=== PATIENT | male | born 1940 | race Caucasian/White ===

== ENCOUNTER 2023-04-11 12:57 | Inpatient (IN) | payer OTHER, MEDICARE ==
[~2023-04-11] VITALS: Ht 175.3 cm; Wt 81.4 kg
[2023-04-11] MEDS ORDERED: NS 100 ML (IVPB) BAG IV ONE (13:15)
[2023-04-11] MEDS ORDERED: HOLD METFORMIN - RECEIVED CONTRAST 20 ML VIAL IV SCH (13:15)
[2023-04-11] MEDS ORDERED: IOHEXOL 350 MG/ML 100 ML (OMNIPAQUE 350) VIAL IV ONE (13:15)
[2023-04-11 13:17] LABS: HEMATOCRIT 35 % (40-54); HEMOGLOBIN 10.8 g/dL (13.3-17.7); MEAN CORPUSCULAR HEMOGLOBIN 26 pg (25-34); MEAN CORPUSCULAR HGB CONC 31 g/dL (32-36); MEAN CORPUSCULAR VOLUME 83 fL (80-99); MEAN PLATELET VOLUME 11.3 fL (9.0-12.2); PLATELET COUNT 170 10^3/uL (130-400); WHITE BLOOD COUNT 7.6 10^3/uL (4.3-11.0)
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
[2023-04-11 13:25] LABS: POTASSIUM 5.2 MMOL/L (3.6-5.0)
[2023-04-11 13:26] LABS: CALCIUM 9.4 MG/DL (8.5-10.1)
[2023-04-11 13:28] LABS: TOTAL PROTEIN 7.3 GM/DL (6.4-8.2)
[2023-04-11 13:29] LABS: INR 1.3 (0.8-1.4); PROTHROMBIN TIME PATIENT 16.7 SEC (12.2-14.7)
[2023-04-11 13:30] LABS: BILIRUBIN,TOTAL 0.4 MG/DL (0.1-1.0)
[2023-04-11 13:31] LABS: CREATININE SERUM 1.39 MG/DL (0.60-1.30)
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
[2023-04-11 13:33] LABS: BILIRUBIN,DIRECT 0.2 MG/DL (0.0-0.3); BILIRUBIN,INDIRECT 0.2 MG/DL
[2023-04-11 13:34] LABS: MAGNESIUM 2.4 MG/DL (1.6-2.4)
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
[2023-04-11] MEDS ORDERED: fentaNYL INJECTION 100 MCG/2 ML VIAL IVP ONE (14:15)
[2023-04-11 14:25] LABS: CLARITY,URINE SLIGHTLY CLOUDY; COLOR,URINE YELLOW; GLUCOSE, URINE (UA) NEGATIVE (NEGATIVE); PH,URINE 7.5 (5-9); PROTEIN,URINE 2+ (NEGATIVE)
[2023-04-11 14:26] LABS: BILIRUBIN,URINE NEGATIVE (NEGATIVE); KETONES,URINE NEGATIVE (NEGATIVE); LEUKOCYTE ESTERASE ,URINE NEGATIVE (NEGATIVE); NITRITE,URINE NEGATIVE (NEGATIVE)
[2023-04-11 14:35] LABS: AMORPHOUS SEDIMENT,UR RARE AMOR PHOSPHATE /LPF; BACTERIA,URINE TRACE /HPF; RBC,URINE >100 /HPF; SQUAMOUS EPITHELIAL CELL,UR RARE /HPF
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
[2023-04-11 16:56] VITALS: BP 123/64
[2023-04-11] MEDS ORDERED: CATHETER FLUSH 10 ML SYR IVP PRN (17:15)
[2023-04-11] MEDS ORDERED: ACETAMINOPHEN 500 MG TABLET PO PRN (17:15)
[2023-04-11] MEDS ORDERED: ONDANSETRON 4 MG/2 ML (SDV) Z0FRAN IV PRN (17:15)
[2023-04-11] MEDS: fentaNYL INJECTION 100 MCG/2 ML VIAL IV PRN (17:24)
[2023-04-11] MEDS: oxyCODONE IMMEDIATE RELEASE 5 MG TABLET PO PRN (17:24)
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
[2023-04-11] MEDS: LIDOCAINE PATCH REMOVAL TP SCH (20:29)
[2023-04-11] MEDS: LIDOCAINE 4% PATCH TOP SCH (20:54)
[2023-04-11] MEDS: METHOCARBAMOL 500 MG TABLET PO SCH (20:55)
[2023-04-11] MEDS: CATHETER FLUSH 10 ML SYR IVP SCH (22:39)
[2023-04-12] MEDS: fentaNYL INJECTION 100 MCG/2 ML VIAL IV PRN ×3 (03:44→21:48)
[2023-04-12 04:27] LABS: HEMATOCRIT 32 % (40-54); HEMOGLOBIN 9.7 g/dL (13.3-17.7); MEAN CORPUSCULAR HEMOGLOBIN 25 pg (25-34); MEAN CORPUSCULAR HGB CONC 31 g/dL (32-36); MEAN CORPUSCULAR VOLUME 82 fL (80-99); PLATELET COUNT 148 10^3/uL (130-400); WHITE BLOOD COUNT 9.2 10^3/uL (4.3-11.0)
[2023-04-12 04:30] LABS: BASOPHILS % (AUTO) 0 % (0-10); EOSINOPHILS # (AUTO) 0.3 10^3/uL (0.0-0.3); EOSINOPHILS % (AUTO) 3 % (0-10); LYMPHOCYTES # (AUTO) 1.6 10^3/uL (1.0-4.0); LYMPHOCYTES % (AUTO) 17 % (12-44); MEAN PLATELET VOLUME 11.9 fL (9.0-12.2); MONOCYTES # (AUTO) 1.1 10^3/uL (0.0-1.0); MONOCYTES % (AUTO) 12 % (0-12); NEUTROPHILS # (AUTO) 6.2 10^3/uL (1.8-7.8); NEUTROPHILS % (AUTO) 67 % (42-75)
[2023-04-12 04:42] LABS: ALBUMIN 3.7 GM/DL (3.2-4.5); POTASSIUM 4.7 MMOL/L (3.6-5.0)
[2023-04-12 04:43] LABS: CALCIUM 8.7 MG/DL (8.5-10.1)
[2023-04-12 04:45] LABS: TOTAL PROTEIN 6.7 GM/DL (6.4-8.2)
[2023-04-12 04:47] LABS: BILIRUBIN,TOTAL 0.9 MG/DL (0.1-1.0)
[2023-04-12 04:48] LABS: CREATININE SERUM 1.6 MG/DL (0.60-1.30); PHOSPHORUS 3.5 MG/DL (2.3-4.7)
[2023-04-12 04:51] LABS: MAGNESIUM 2.2 MG/DL (1.6-2.4)
[2023-04-12] MEDS: CATHETER FLUSH 10 ML SYR IVP SCH ×2 (06:14→22:12)
[2023-04-12] MEDS: oxyCODONE IMMEDIATE RELEASE 5 MG TABLET PO PRN ×3 (06:22→19:40)
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
[2023-04-12] MEDS: METHOCARBAMOL 500 MG TABLET PO SCH ×3 (09:22→20:21)
[2023-04-12] MEDS: LIDOCAINE 4% PATCH TOP SCH ×2 (09:22→20:21)
[2023-04-12] MEDS: LIDOCAINE PATCH REMOVAL TP SCH ×2 (09:22→20:21)
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
[2023-04-12] MEDS ORDERED: CARV25TA PO (15:19)
[2023-04-12] MEDS ORDERED: FERR-84 PO (15:19)
[2023-04-12] MEDS ORDERED: LEVO100T7 PO (15:19)
[2023-04-12] MEDS ORDERED: APIX5TAB PO (15:19)
[2023-04-12] MEDS ORDERED: PANT40TA52 PO (15:19)
[2023-04-12] MEDS ORDERED: ASPI-1238 PO (15:19)
[2023-04-12] MEDS ORDERED: FURO40TA4 PO (15:19)
[2023-04-12] MEDS: DOCUSATE SODIUM 100 MG CAPSULE PO SCH (20:21)
[2023-04-12] MEDS: SENNA W/DOCUSATE (SENOKOT S) TABLET PO SCH (20:21)
[2023-04-12] MEDS: LACTATED RINGERS 1,000 ML IV SCH (22:55)
[2023-04-13] MEDS: oxyCODONE IMMEDIATE RELEASE 5 MG TABLET PO PRN ×5 (00:08→22:53)
[2023-04-13] MEDS: fentaNYL INJECTION 100 MCG/2 ML VIAL IV PRN ×3 (04:27→10:06)
[2023-04-13 04:35] LABS: BASOPHILS % (AUTO) 0 % (0-10); EOSINOPHILS # (AUTO) 0.3 10^3/uL (0.0-0.3); EOSINOPHILS % (AUTO) 3 % (0-10); MONOCYTES # (AUTO) 1.1 10^3/uL (0.0-1.0)
[2023-04-13 04:37] LABS: HEMATOCRIT 29 % (40-54); HEMOGLOBIN 8.9 g/dL (13.3-17.7); LYMPHOCYTES # (AUTO) 1.7 10^3/uL (1.0-4.0); LYMPHOCYTES % (AUTO) 19 % (12-44); MEAN CORPUSCULAR HEMOGLOBIN 26 pg (25-34); MEAN CORPUSCULAR HGB CONC 31 g/dL (32-36); MEAN CORPUSCULAR VOLUME 83 fL (80-99); MEAN PLATELET VOLUME 11.5 fL (9.0-12.2); MONOCYTES % (AUTO) 12 % (0-12); NEUTROPHILS # (AUTO) 5.9 10^3/uL (1.8-7.8); NEUTROPHILS % (AUTO) 65 % (42-75); PLATELET COUNT 122 10^3/uL (130-400); WHITE BLOOD COUNT 9.1 10^3/uL (4.3-11.0)
[2023-04-13 04:46] LABS: ALBUMIN 3.5 GM/DL (3.2-4.5); POTASSIUM 4.5 MMOL/L (3.6-5.0)
[2023-04-13 04:47] LABS: CALCIUM 8.6 MG/DL (8.5-10.1)
[2023-04-13 04:49] LABS: TOTAL PROTEIN 6.3 GM/DL (6.4-8.2)
[2023-04-13 04:50] LABS: BILIRUBIN,TOTAL 0.9 MG/DL (0.1-1.0); SMEAR SCAN COMMENT YES
[2023-04-13 04:52] LABS: PHOSPHORUS 3.4 MG/DL (2.3-4.7)
[2023-04-13 05:23] LABS: CREATININE SERUM 1.39 MG/DL (0.60-1.30)
[2023-04-13 05:25] LABS: MAGNESIUM 2.2 MG/DL (1.6-2.4)
[2023-04-13] MEDS: CATHETER FLUSH 10 ML SYR IVP SCH ×3 (06:23→21:04)
[2023-04-13] MEDS: DOCUSATE SODIUM 100 MG CAPSULE PO SCH ×2 (08:31→20:13)
[2023-04-13] MEDS: METHOCARBAMOL 500 MG TABLET PO SCH ×3 (08:31→20:13)
[2023-04-13] MEDS: LACTATED RINGERS 1,000 ML IV SCH (08:31)
[2023-04-13] MEDS: SENNA W/DOCUSATE (SENOKOT S) TABLET PO SCH ×2 (08:32→20:13)
[2023-04-13] MEDS: LIDOCAINE PATCH REMOVAL TP SCH ×2 (08:32→21:04)
[2023-04-13] MEDS: LIDOCAINE 4% PATCH TOP SCH ×2 (08:32→20:13)
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
[2023-04-13] MEDS ORDERED: NON-FORMULARY MEDICATION 1 EA EA (Carvedilol 25 MG) PO SCH (09:45)
[2023-04-13] MEDS: PANTOPRAZOLE 40 MG (PROTONIX) TAB PO SCH (10:06)
[2023-04-13] MEDS: carvediloL 12.5 MG TABLET PO SCH ×2 (10:07→20:13)
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
--- NOTE | 2023-04-13 11:11 | Physical Therapy Daily Note ---
PT Daily Note-Current Subjective Pt. in bed, very [place] but agrees to PT. He c/o R sciatic pain and numbness, unable to give objective pain rating when asked. Pain Section J - Health Conditions 1. Rarely or not at all 2. Occasionally 3. Frequently 4. Almost constantly 8. Unable to answer Pain Effect on Sleep: 3 Pain Interference with Therapy: 3 Pain Interference w/Day-to-Day: 3 Mental Status Patient Orientation: Person, Place, Time, Situation Attachments: Oxygen Transfers SCALE: Activities may be completed with or without assistive devices. 9-[id number]-[id number] completes the activity by him/herself with no assistance from a helper. 5-Set-up or Clean-up Assistance-helper sets up or cleans up; patient completes activity. [place] assists only prior to or following the activity. 4-Supervision or Touching Assistance-helper provides verbal cues and/or touching/steadying and/or contact guard assistance as patient completes activit y. Assistance may be provided throughout the activity or intermittently. 3-Partial/Moderate Assistance-helper does LESS THAN HALF the effort. [place] lifts, holds or supports trunk or limbs, but provides less than half the effort. 2-Substantial/Maximal Assistance-helper does MORE THAN HALF the effort. [place] lifts or holds trunk or limbs and provides more than half the effort. 8-Hlzmtrbur-usvrip does ALL the effort. Patient does none of the effort to complete the activity. Or, the assistance of 2 or more helpers is required for the patient to complete the activity. If activity was not attempted, code reason: 7-Patient Refused. 9-Not Applicable-not attempted and the patient did not perform the activity before the current illness, exacerbation or injury. 10-Not Attempted due to Environmental Limitations-(lack of equipment, weather restraints, etc.). 88-Not Attempted due to Medical Conditions or Safety Concerns. Lying to Sitting/Side of Bed(Q: 4 Sit to Stand (QC): 4 Gait Training Does the Patient Walk?: Yes Distance: 200 ft Walk 150 ft (QC): 4 Gait Persons Needed: 1 Gait Assistive Device: FWW Assessment Current Status: Good Progress Pt. is steady with ambulation but requires use of FWW due to c/o numbness and pain in the R LE and needed to lean slightly on walker. Pt. up in bedside chair post session with O2 in situ, call light and all needs met. Pt. did ambulate on RA with O2 sats 100% upon return to room. PT Snf Goals Snf Goals PT Snf Goals Time Frame: Apr 27, 2023 Roll Left & Right (QC): 6 Sit to Lying (QC): 6 Lying-Sitting on Side/Bed(QC): 6 Sit to Stand (QC): 6 Chair/Ooi-am-Hyogw Xfer(QC): 6 Toilet Transfer (QC): 6 Car Transfer (QC): 6 Walk 10 feet (QC): 6 Walk 50ft with 2 Turns (QC): 6 Walk 150 ft (QC): 6 Walking 10ft on Uneven Surface: 6 1 Step (curb) (QC): 6 4 Steps (QC): 6 PT Plan Treatment/Plan Treatment Plan: Continue Plan of Care Treatment Plan: Bed Mobility, Education, Functional Activity Dior, Functional Strength, Gait, Safety, Therapeutic Exercise, Transfers Treatment Duration: Apr 27, 2023 Frequency: 6 times per week Estimated Hrs Per Day: .25 hour per day Patient and/or Family Agrees t: Yes Time Time In: 1050 Time Out: 1105 DATE: Apr 13, 2023 Total Billed Treatment Time: 15 Total Billed Treatment 1, GT 15' JOSR COOPER PT Apr 13, 2023 11:11
[2023-04-13] MEDS: FERROUS SULFATE 325 MG (IRON) TABLET PO SCH (12:53)
[2023-04-13] MEDS ORDERED: APIXABAN 5 MG TABLET PO NR (13:00)
[2023-04-13 16:00] VITALS: BP 111/68
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
[2023-04-13 19:47] VITALS: BP 99/60
[2023-04-13] MEDS: APIXABAN 5 MG TABLET PO SCH (20:13)
[2023-04-14] VITALS (8 sets, daily range): BP systolic 102–109; BP diastolic 55–72
[2023-04-14] MEDS: fentaNYL INJECTION 100 MCG/2 ML VIAL IV PRN ×2 (04:23→08:42)
[2023-04-14 06:03] LABS: HEMOGLOBIN 8.2 g/dL (13.3-17.7); LYMPHOCYTES % (AUTO) 20 % (12-44); MEAN CORPUSCULAR HEMOGLOBIN 25 pg (25-34)
[2023-04-14 06:05] LABS: BASOPHILS % (AUTO) 0 % (0-10); EOSINOPHILS # (AUTO) 0.2 10^3/uL (0.0-0.3); EOSINOPHILS % (AUTO) 3 % (0-10); HEMATOCRIT 27 % (40-54); LYMPHOCYTES # (AUTO) 1.4 10^3/uL (1.0-4.0); MEAN CORPUSCULAR HGB CONC 31 g/dL (32-36); MEAN CORPUSCULAR VOLUME 83 fL (80-99); MEAN PLATELET VOLUME 12.7 fL (9.0-12.2); MONOCYTES # (AUTO) 0.9 10^3/uL (0.0-1.0); MONOCYTES % (AUTO) 13 % (0-12); NEUTROPHILS # (AUTO) 4.6 10^3/uL (1.8-7.8); NEUTROPHILS % (AUTO) 64 % (42-75); PLATELET COUNT 105 10^3/uL (130-400); WHITE BLOOD COUNT 7.3 10^3/uL (4.3-11.0)
[2023-04-14] MEDS: CATHETER FLUSH 10 ML SYR IVP SCH ×3 (06:08→20:18)
[2023-04-14 06:14] LABS: ALBUMIN 3.3 GM/DL (3.2-4.5); POTASSIUM 4.7 MMOL/L (3.6-5.0)
[2023-04-14 06:16] LABS: CALCIUM 8.3 MG/DL (8.5-10.1)
[2023-04-14 06:17] LABS: TOTAL PROTEIN 6.4 GM/DL (6.4-8.2)
[2023-04-14 06:19] LABS: BILIRUBIN,TOTAL 0.9 MG/DL (0.1-1.0)
[2023-04-14 06:21] LABS: CREATININE SERUM 1.29 MG/DL (0.60-1.30)
[2023-04-14 06:23] LABS: MAGNESIUM 2.2 MG/DL (1.6-2.4)
[2023-04-14] MEDS: LEVOTHYROXINE 100 MCG TABLET PO SCH (06:32)
[2023-04-14] MEDS: oxyCODONE IMMEDIATE RELEASE 5 MG TABLET PO PRN (06:32)
[2023-04-14] MEDS: METHOCARBAMOL 500 MG TABLET PO SCH ×3 (08:42→21:01)
[2023-04-14] MEDS: SENNA W/DOCUSATE (SENOKOT S) TABLET PO SCH ×2 (08:43→21:01)
[2023-04-14] MEDS: APIXABAN 5 MG TABLET PO SCH ×2 (08:43→20:17)
[2023-04-14] MEDS: carvediloL 12.5 MG TABLET PO SCH ×2 (08:43→20:17)
[2023-04-14] MEDS: LIDOCAINE 4% PATCH TOP SCH ×2 (08:43→20:17)
[2023-04-14] MEDS: PANTOPRAZOLE 40 MG (PROTONIX) TAB PO SCH (08:43)
[2023-04-14] MEDS: DOCUSATE SODIUM 100 MG CAPSULE PO SCH ×2 (08:43→21:01)
[2023-04-14] MEDS: LIDOCAINE PATCH REMOVAL TP SCH ×2 (08:43→20:18)
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
[2023-04-14] MEDS: ACETAMINOPHEN 500 MG TABLET PO SCH ×2 (11:51→17:27)
[2023-04-15] VITALS (7 sets, daily range): BP systolic 103–125; BP diastolic 55–80
[2023-04-15] MEDS: ACETAMINOPHEN 500 MG TABLET PO SCH ×3 (02:53→16:23)
[2023-04-15 05:26] LABS: BASOPHILS % (AUTO) 0 % (0-10); EOSINOPHILS # (AUTO) 0.2 10^3/uL (0.0-0.3); EOSINOPHILS % (AUTO) 3 % (0-10); HEMATOCRIT 26 % (40-54); HEMOGLOBIN 8.1 g/dL (13.3-17.7); LYMPHOCYTES # (AUTO) 1.2 10^3/uL (1.0-4.0); LYMPHOCYTES % (AUTO) 16 % (12-44); MEAN CORPUSCULAR HEMOGLOBIN 26 pg (25-34); MEAN CORPUSCULAR HGB CONC 31 g/dL (32-36); MEAN CORPUSCULAR VOLUME 82 fL (80-99); MEAN PLATELET VOLUME 12.1 fL (9.0-12.2); MONOCYTES # (AUTO) 0.9 10^3/uL (0.0-1.0); MONOCYTES % (AUTO) 12 % (0-12); NEUTROPHILS # (AUTO) 4.9 10^3/uL (1.8-7.8); NEUTROPHILS % (AUTO) 68 % (42-75); PLATELET COUNT 131 10^3/uL (130-400); WHITE BLOOD COUNT 7.3 10^3/uL (4.3-11.0)
[2023-04-15 05:41] LABS: ALBUMIN 3.5 GM/DL (3.2-4.5); POTASSIUM 4.8 MMOL/L (3.6-5.0)
[2023-04-15 05:42] LABS: CALCIUM 8.6 MG/DL (8.5-10.1)
[2023-04-15 05:43] LABS: TOTAL PROTEIN 6.7 GM/DL (6.4-8.2)
[2023-04-15 05:47] LABS: CREATININE SERUM 1.17 MG/DL (0.60-1.30); PHOSPHORUS 2.8 MG/DL (2.3-4.7)
[2023-04-15 05:50] LABS: MAGNESIUM 2.3 MG/DL (1.6-2.4)
[2023-04-15] MEDS: CATHETER FLUSH 10 ML SYR IVP SCH ×3 (06:02→19:46)
[2023-04-15] MEDS: LEVOTHYROXINE 100 MCG TABLET PO SCH (06:29)
[2023-04-15] MEDS: APIXABAN 5 MG TABLET PO SCH ×2 (08:15→19:41)
[2023-04-15] MEDS: PANTOPRAZOLE 40 MG (PROTONIX) TAB PO SCH (08:16)
[2023-04-15] MEDS: DOCUSATE SODIUM 100 MG CAPSULE PO SCH ×2 (08:16→19:42)
[2023-04-15] MEDS: SENNA W/DOCUSATE (SENOKOT S) TABLET PO SCH ×2 (08:16→19:42)
[2023-04-15] MEDS: carvediloL 12.5 MG TABLET PO SCH ×2 (08:16→19:42)
[2023-04-15] MEDS: LIDOCAINE 4% PATCH TOP SCH ×2 (08:17→19:44)
[2023-04-15] MEDS: METHOCARBAMOL 500 MG TABLET PO SCH ×3 (08:17→19:46)
[2023-04-15] MEDS: LIDOCAINE PATCH REMOVAL TP SCH ×2 (08:17→19:46)
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
--- NOTE | 2023-04-15 11:34 | Physical Therapy Daily Note ---
PT Daily Note-Current Subjective Patient agrees to PT. Pain Section J - Health Conditions 1. Rarely or not at all 2. Occasionally 3. Frequently 4. Almost constantly 8. Unable to answer Pain Effect on Sleep: 1 Pain Interference with Therapy: 1 Pain Interference w/Day-to-Day: 1 Mental Status Patient Orientation: Normal For Age Transfers SCALE: Activities may be completed with or without assistive devices. 3-Bxyazhowjr-vfuxcro completes the activity by him/herself with no assistance from a helper. 5-Set-up or Clean-up Assistance-helper sets up or cleans up; patient completes activity. Deeth assists only prior to or following the activity. 4-Supervision or Touching Assistance-helper provides verbal cues and/or touching/steadying and/or contact guard assistance as patient completes activity. Assistance may be provided throughout the activity or intermittently. 3-Partial/Moderate Assistance-helper does LESS THAN HALF the effort. Deeth lifts, holds or supports trunk or limbs, but provides less than half the effort. 2-Substantial/Maximal Assistance-helper does MORE THAN HALF the effort. Deeth lifts or holds trunk or limbs and provides more than half the effort. 3-Wwbcuizxn-rxeqvj does ALL the effort. Patient does none of the effort to complete the activity. Or, the assistance of 2 or more helpers is required for the patient to complete the activity. If activity was not attempted, code reason: 7-Patient Refused. 9-Not Applicable-not attempted and the patient did not perform the activity before the current illness, exacerbation or injury. 10-Not Attempted due to Environmental Limitations-(lack of equipment, weather restraints, etc.). 88-Not Attempted due to Medical Conditions or Safety Concerns. Sit to Stand (QC): 4 Gait Training Distance: 400' Walk 10 feet (QC): 4 Walk 50 ft with 2 Turns(QC): 4 Walk 150 ft (QC): 4 Gait Assistive Device: FWW attempted to ambulate with cane, however, unsteady requiring FWW use for safe mobility Assessment Patient remains up in recliner with needs met. PT to continue to increase activity as tolerated by patient. PT Half-Way Goals Half-Way Goals PT Half-Way Goals Time Frame: Apr 27, 2023 Roll Left & Right (QC): 6 Sit to Lying (QC): 6 Lying-Sitting on Side/Bed(QC): 6 Sit to Stand (QC): 6 Chair/Kro-xp-Sopzl Xfer(QC): 6 Toilet Transfer (QC): 6 Car Transfer (QC): 6 Walk 10 feet (QC): 6 Walk 50ft with 2 Turns (QC): 6 Walk 150 ft (QC): 6 Walking 10ft on Uneven Surface: 6 1 Step (curb) (QC): 6 4 Steps (QC): 6 PT Plan Treatment/Plan Treatment Plan: Continue Plan of Care Treatment Plan: Bed Mobility, Education, Functional Activity Dior, Functional Strength, Gait, Safety, Therapeutic Exercise, Transfers Treatment Duration: Apr 27, 2023 Frequency: 6 times per week Estimated Hrs Per Day: .25 hour per day Patient and/or Family Agrees t: Yes Time Time In: 1112 Time Out: 1124 DATE: Apr 15, 2023 Total Billed Treatment Time: 12 Total Billed Treatment 1 visit FA 12 min JACKELIN ROACH PT Apr 15, 2023 11:34
[2023-04-15] MEDS: FERROUS SULFATE 325 MG (IRON) TABLET PO SCH (14:04)
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
[2023-04-16] VITALS (7 sets, daily range): BP systolic 95–137; BP diastolic 53–63
[2023-04-16] MEDS: ACETAMINOPHEN 500 MG TABLET PO SCH ×4 (02:46→18:31)
[2023-04-16] MEDS: LEVOTHYROXINE 100 MCG TABLET PO SCH (05:50)
[2023-04-16] MEDS: CATHETER FLUSH 10 ML SYR IVP SCH ×3 (05:50→19:51)
[2023-04-16 05:52] LABS: HEMATOCRIT 26 % (40-54); HEMOGLOBIN 8.1 g/dL (13.3-17.7); MEAN CORPUSCULAR HGB CONC 32 g/dL (32-36)
[2023-04-16 05:54] LABS: BASOPHILS % (AUTO) 0 % (0-10); EOSINOPHILS # (AUTO) 0.2 10^3/uL (0.0-0.3); EOSINOPHILS % (AUTO) 2 % (0-10); LYMPHOCYTES # (AUTO) 1.2 10^3/uL (1.0-4.0); LYMPHOCYTES % (AUTO) 17 % (12-44); MEAN CORPUSCULAR HEMOGLOBIN 26 pg (25-34); MEAN CORPUSCULAR VOLUME 82 fL (80-99); MEAN PLATELET VOLUME 12.3 fL (9.0-12.2); MONOCYTES # (AUTO) 0.9 10^3/uL (0.0-1.0); MONOCYTES % (AUTO) 13 % (0-12); NEUTROPHILS # (AUTO) 4.8 10^3/uL (1.8-7.8); NEUTROPHILS % (AUTO) 67 % (42-75); PLATELET COUNT 132 10^3/uL (130-400); WHITE BLOOD COUNT 7.1 10^3/uL (4.3-11.0)
[2023-04-16 06:09] LABS: ALBUMIN 3.5 GM/DL (3.2-4.5); POTASSIUM 4.4 MMOL/L (3.6-5.0)
[2023-04-16 06:10] LABS: CALCIUM 8.8 MG/DL (8.5-10.1)
[2023-04-16 06:11] LABS: TOTAL PROTEIN 6.8 GM/DL (6.4-8.2)
[2023-04-16 06:13] LABS: BILIRUBIN,TOTAL 1.2 MG/DL (0.1-1.0)
[2023-04-16 06:14] LABS: PHOSPHORUS 2.7 MG/DL (2.3-4.7)
[2023-04-16 06:15] LABS: CREATININE SERUM 1.18 MG/DL (0.60-1.30)
[2023-04-16 06:18] LABS: MAGNESIUM 2.3 MG/DL (1.6-2.4)
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
[2023-04-16] MEDS: DOCUSATE SODIUM 100 MG CAPSULE PO SCH ×2 (08:41→19:50)
[2023-04-16] MEDS: METHOCARBAMOL 500 MG TABLET PO SCH ×4 (08:41→19:52)
[2023-04-16] MEDS: SENNA W/DOCUSATE (SENOKOT S) TABLET PO SCH ×2 (08:41→19:50)
[2023-04-16] MEDS: carvediloL 12.5 MG TABLET PO SCH ×2 (08:42→21:20)
[2023-04-16] MEDS: PANTOPRAZOLE 40 MG (PROTONIX) TAB PO SCH (08:42)
[2023-04-16] MEDS: APIXABAN 5 MG TABLET PO SCH ×2 (08:42→19:50)
[2023-04-16] MEDS: LIDOCAINE PATCH REMOVAL TP SCH ×2 (08:44→19:50)
[2023-04-16] MEDS: LIDOCAINE 4% PATCH TOP SCH ×2 (08:45→19:50)
--- NOTE | 2023-04-16 12:04 | Physical Therapy Daily Note ---
PT Daily Note-Current Subjective Patient agrees to PT. Pain Section J - Health Conditions 1. Rarely or not at all 2. Occasionally 3. Frequently 4. Almost constantly 8. Unable to answer Pain Effect on Sleep: 1 Pain Interference with Therapy: 1 Pain Interference w/Day-to-Day: 1 Transfers SCALE: Activities may be completed with or without assistive devices. 8-Kkwiqdfblp-hcascca completes the activity by him/herself with no assistance from a helper. 5-Set-up or Clean-up Assistance-helper sets up or cleans up; patient completes activity. Struthers assists only prior to or following the activity. 4-Supervision or Touching Assistance-helper provides verbal cues and/or touching/steadying and/or contact guard assistance as patient completes activity. Assistance may be provided throughout the activity or intermittently. 3-Partial/Moderate Assistance-helper does LESS THAN HALF the effort. Struthers lifts, holds or supports trunk or limbs, but provides less than half the effort. 2-Substantial/Maximal Assistance-helper does MORE THAN HALF the effort. Struthers lifts or holds trunk or limbs and provides more than half the effort. 5-Tnxsfrpmd-yustlx does ALL the effort. Patient does none of the effort to complete the activity. Or, the assistance of 2 or more helpers is required for the patient to complete the activity. If activity was not attempted, code reason: 7-Patient Refused. 9-Not Applicable-not attempted and the patient did not perform the activity before the current illness, exacerbation or injury. 10-Not Attempted due to Environmental Limitations-(lack of equipment, weather restraints, etc.). 88-Not Attempted due to Medical Conditions or Safety Concerns. Lying to Sitting/Side of Bed(Q: 6 Sit to Stand (QC): 4 Chair/Foe-yk-Fbeiw Xfer(QC): 4 Gait Training Distance: 400' Walk 10 feet (QC): 5 Walk 50 ft with 2 Turns(QC): 5 Walk 150 ft (QC): 5 Gait Assistive Device: FWW Stair Training Stair Training: Handrails/: 1 handrail #of Steps: 4 1 Step (curb) (QC): 4 4 Steps (QC): 4 Stairs: Pattern: Step to Exercises Seated Therapy Exercises: Shoulder Flex, Shoulder Abd, Reaching activity Seated Reps: 15 (instructed to perform PRN 15 reps 3/day) Assessment Patient requires time to complete all functional tasks. Patient performed shoulder AROM with increase c/o right rib pain. Patient performed stair training SBA PT Lighting Engineer Goals Lighting Engineer Goals PT Alf Goals Time Frame: Apr 27, 2023 Roll Left & Right (QC): 6 Sit to Lying (QC): 6 Lying-Sitting on Side/Bed(QC): 6 Sit to Stand (QC): 6 Chair/Uvh-kj-Kpbdi Xfer(QC): 6 Toilet Transfer (QC): 6 Car Transfer (QC): 6 Walk 10 feet (QC): 6 Walk 50ft with 2 Turns (QC): 6 Walk 150 ft (QC): 6 Walking 10ft on Uneven Surface: 6 1 Step (curb) (QC): 6 4 Steps (QC): 6 PT Plan Treatment/Plan Treatment Plan: Continue Plan of Care Treatment Plan: Bed Mobility, Education, Functional Activity Dior, Functional Strength, Gait, Safety, Therapeutic Exercise, Transfers Treatment Duration: Apr 27, 2023 Frequency: 6 times per week Estimated Hrs Per Day: .25 hour per day Patient and/or Family Agrees t: Yes Time Time In: 1047 Time Out: 1110 DATE: Apr 16, 2023 Total Billed Treatment Time: 23 Total Billed Treatment 1 visit EX 8 min FA 15 min JACKELIN ROACH PT Apr 16, 2023 12:04
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
[2023-04-17] MEDS: ACETAMINOPHEN 500 MG TABLET PO SCH ×2 (02:05→09:35)
[2023-04-17 03:39] VITALS: BP 99/54
[2023-04-17] MEDS: LEVOTHYROXINE 100 MCG TABLET PO SCH (05:30)
[2023-04-17] MEDS: CATHETER FLUSH 10 ML SYR IVP SCH ×2 (05:30→12:48)
[2023-04-17 07:00] LABS: BASOPHILS % (AUTO) 1 % (0-10); EOSINOPHILS # (AUTO) 0.2 10^3/uL (0.0-0.3); EOSINOPHILS % (AUTO) 3 % (0-10); HEMATOCRIT 26 % (40-54); HEMOGLOBIN 8.2 g/dL (13.3-17.7); LYMPHOCYTES # (AUTO) 1.1 10^3/uL (1.0-4.0); LYMPHOCYTES % (AUTO) 18 % (12-44); MEAN CORPUSCULAR HEMOGLOBIN 26 pg (25-34); MEAN CORPUSCULAR HGB CONC 31 g/dL (32-36); MEAN CORPUSCULAR VOLUME 83 fL (80-99); MEAN PLATELET VOLUME 11.9 fL (9.0-12.2); MONOCYTES # (AUTO) 0.7 10^3/uL (0.0-1.0); MONOCYTES % (AUTO) 11 % (0-12); NEUTROPHILS # (AUTO) 4.4 10^3/uL (1.8-7.8); NEUTROPHILS % (AUTO) 67 % (42-75); PLATELET COUNT 152 10^3/uL (130-400); WHITE BLOOD COUNT 6.5 10^3/uL (4.3-11.0)
[2023-04-17 07:10] LABS: ALBUMIN 3.7 GM/DL (3.2-4.5)
[2023-04-17 07:11] LABS: POTASSIUM 4.7 MMOL/L (3.6-5.0)
[2023-04-17 07:12] LABS: CALCIUM 8.8 MG/DL (8.5-10.1)
[2023-04-17 07:15] LABS: BILIRUBIN,TOTAL 1.2 MG/DL (0.1-1.0)
[2023-04-17 07:16] LABS: PHOSPHORUS 3.1 MG/DL (2.3-4.7)
[2023-04-17 07:17] LABS: CREATININE SERUM 1.18 MG/DL (0.60-1.30)
[2023-04-17 07:19] LABS: MAGNESIUM 2.3 MG/DL (1.6-2.4)
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
[2023-04-17 07:53] VITALS: BP 181/88
[2023-04-17] MEDS: SENNA W/DOCUSATE (SENOKOT S) TABLET PO SCH (09:33)
[2023-04-17] MEDS: LIDOCAINE PATCH REMOVAL TP SCH (09:33)
[2023-04-17] MEDS: DOCUSATE SODIUM 100 MG CAPSULE PO SCH (09:34)
[2023-04-17] MEDS: carvediloL 12.5 MG TABLET PO SCH (09:34)
[2023-04-17] MEDS: METHOCARBAMOL 500 MG TABLET PO SCH ×2 (09:34→12:48)
[2023-04-17] MEDS: APIXABAN 5 MG TABLET PO SCH (09:35)
[2023-04-17] MEDS: PANTOPRAZOLE 40 MG (PROTONIX) TAB PO SCH (09:35)
[2023-04-17] MEDS: LIDOCAINE 4% PATCH TOP SCH (09:35)
[2023-04-17] MEDS: FERROUS SULFATE 325 MG (IRON) TABLET PO SCH (09:47)
[2023-04-17 11:48] VITALS: BP 113/70
--- NOTE | 2023-04-17 12:00 | Physical Therapy Daily Note ---
PT Daily Note-Current Subjective Patient standing in room upon PT arrival, agreeable to treatment. Patient rates pain in right Leg at 4/10 currently. Pain Section J - Health Conditions 1. Rarely or not at all 2. Occasionally 3. Frequently 4. Almost constantly 8. Unable to answer Pain Effect on Sleep: 1 Pain Interference with Therapy: 1 Pain Interference w/Day-to-Day: 1 Mental Status Patient Orientation: Person, Place, Time, Situation Transfers SCALE: Activities may be completed with or without assistive devices. 8-Qsayzbgqvd-cysacbp completes the activity by him/herself with no assistance from a helper. 5-Set-up or Clean-up Assistance-helper sets up or cleans up; patient completes activity. [place] assists only prior to or following the activity. 4-Supervision or Touching Assistance-helper provides verbal cues and/or touching/steadying and/or contact guard assistance as patient completes activity. Assistance may be provided throughout the activity or intermittently. 3-Partial/Moderate Assistance-helper does LESS THAN HALF the effort. [place] lifts, holds or supports trunk or limbs, but provides less than half the effort. 2-Substantial/Maximal Assistance-helper does MORE THAN HALF the effort. [place] lifts or holds trunk or limbs and provides more than half the effort. 6-Dmecedlpi-hlwfzx does ALL the effort. Patient does none of the effort to complete the activity. Or, the assistance of 2 or more helpers is required for the patient to complete the activity. If activity was not attempted, code reason: 7-Patient Refused. 9-Not Applicable-not attempted and the patient did not perform the activity before the current illness, exacerbation or injury. 10-Not Attempted due to Environmental Limitations-(lack of equipment, weather restraints, etc.). 88-Not Attempted due to Medical Conditions or Safety Concerns. Roll Left & Right (QC): 6 Sit to Lying (QC): 6 Lying to Sitting/Side of Bed(Q: 6 Sit to Stand (QC): 6 Chair/Ozx-hn-Kfthe Xfer(QC): 6 Toilet Transfer (QC): 6 Gait Training Does the Patient Walk?: Yes Distance: 400' Walk 10 feet (QC): 6 Walk 50 ft with 2 Turns(QC): 6 Walk 150 ft (QC): 6 Gait Assistive Device: FWW Assessment Current Status: Excellent Progress Patient tolerated treatment well. Patient ambulates 400 feet with FWW, with [place]. Patient in chair post treatment with all needs met, nursing notified, call light in hand. PT Assisted Goals Plastic Roller Goals PT Plastic Roller Goals Time Frame: Apr 27, 2023 Roll Left & Right (QC): 6 Sit to Lying (QC): 6 Lying-Sitting on Side/Bed(QC): 6 Sit to Stand (QC): 6 Chair/Viz-ja-Ypxie Xfer(QC): 6 Toilet Transfer (QC): 6 Car Transfer (QC): 6 Walk 10 feet (QC): 6 Walk 50ft with 2 Turns (QC): 6 Walk 150 ft (QC): 6 Walking 10ft on Uneven Surface: 6 1 Step (curb) (QC): 6 4 Steps (QC): 6 PT Plan Treatment/Plan Treatment Plan: Continue Plan of Care Treatment Plan: Bed Mobility, Education, Functional Activity Dior, Functional Strength, Gait, Safety, Therapeutic Exercise, Transfers Treatment Duration: Apr 27, 2023 Frequency: 6 times per week Estimated Hrs Per Day: .25 hour per day Patient and/or Family Agrees t: Yes Safety Risks/Education Patient Education: Gait Training, Transfer Techniques Teaching Recipient: Patient Teaching Methods: Demonstration, Discussion Response to Teaching: Verbalize Understanding, Return Demonstration Time Time In: 1130 Time Out: 1145 DATE: Apr 17, 2023 Total Billed Treatment Time: 15 Total Billed Treatment Visit, NICK WHEATLEY PT Apr 17, 2023 12:00
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
--- NOTE | 2023-04-17 15:28 | Discharge Inst-Simple/Standard ---
Discharge Inst-Standard Reconcile Patient Problems Problems Reviewed?: Yes Patient Instructions/Follow Up Plan of Care/Instructions/FU: Follow up with [place] primary care 1-2 weeks for referral to Neurosurgery outpatient for S1 fracture. [place] 2 weeks. Activity as Tolerated: No Discharge Diet: Regular Diet Other Inst to Patient Follow up Appt: Make appointment for 2 week [place] primary care appointment 1-2 weeks for referral to Neurosurgery for S1 Fracture. Instructions: No lifting greater than 10 pounds. No strenuous activity. May shower in 24 hours, no tub bath or soaking. Use incentive spirometer at home as directed. No Smoking Skin/Wound Care: Keep wounds clean and dry. Symptoms to Report: Appetite Changes, Extremity Discoloration, Numbness/Tingling, Swelling Increased, Bleeding Excessive, Eyesight Changes, Pain Increased, Urine Color Change, Constipation(Persistent), Fever over 101 degree F, Pain/Pressure in chest, Urinating Difficulty, Cough Up/Vomit Blood, Heart Beat Irreg/Pounding, Pain/Pressure in jaw, Vaginal Bleeding Increase, Cramps in feet or legs, Lightheadedness, Pain/Pressure in shoulder, Diarrhea(Persistent), Memory Changes Suddenly, Questions/Concerns, Weight gain consecutive days, Dizziness/Fainting, Nausea/Vomiting, Shortness of Breath, Weight gain over 2 pounds If questions or concerns contact your physician Or seek help at emergency department. SHARIFA MADERA DO Apr 17, 2023 15:28
[2023-04-17 16:10] VITALS: BP 113/70
== END 2023-04-17 16:05 | disposition home health service (06) | DRG 964 ==
LOC: ER 13:09 → ICU 16:24 → 4TH 04-13 13:15
PROVIDERS: ADMIT Surgery; ATTEND Surgery
DX: S22.41XA Multiple fractures of ribs, right side, initial encounter for closed fracture (principal); N17.9 Acute kidney failure, unspecified; S32.10XA Unspecified fracture of sacrum, initial encounter for closed fracture; S36.898A Other injury of other intra-abdominal organs, initial encounter; S61.512A Laceration without foreign body of left wrist, initial encounter; I48.0 Paroxysmal atrial fibrillation; I10 Essential (primary) hypertension; D64.9 Anemia, unspecified; Z66 Do not resuscitate; M47.812 Spondylosis without myelopathy or radiculopathy, cervical region; E03.9 Hypothyroidism, unspecified; M19.90 Unspecified osteoarthritis, unspecified site; H40.9 Unspecified glaucoma; H54.7 Unspecified visual loss; H91.90 Unspecified hearing loss, unspecified ear; Z79.01 Long term (current) use of anticoagulants; Z86.73 Personal history of transient ischemic attack (TIA), and cerebral infarction without residual deficits; Z79.82 Long term (current) use of aspirin; Z79.899 Other long term (current) drug therapy; Z88.0 Allergy status to penicillin; Z88.7 Allergy status to serum and vaccine; Z91.09 Other allergy status, other than to drugs and biological substances; V03.00XA Pedestrian on foot injured in collision with car, pick-up truck or van in nontraffic accident, initial encounter
CPT/HCPCS: 36415; 70450; 71045; 71260; 72125; 72128; 72131; 74177; 80048; 80053; 80076; 81000; 82550; 83735; 84100; 85025; 85027; 85610; 85730; 87081; 87088; 93005; 93041; 94664

== ENCOUNTER → 2023-04-29 | Outpatient (CLI) | payer MEDICARE, OTHER ==
[~2023-04-29] MED LIST: APIX5TAB PO; ASPI-1238 PO; CARV25TA PO; FERR-84 PO; FURO40TA4 PO; LEVO100T7 PO; PANT40TA52 PO
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
== END ==
LOC: RAD 11:19
PROVIDERS: ATTEND Surgery
DX: R22.41 Localized swelling, mass and lump, right lower limb (principal); M25.571 Pain in right ankle and joints of right foot
CPT/HCPCS: 73600